=== PATIENT | female | born 1990 | race Caucasian/White ===

== ENCOUNTER → 2018-01-06 | Outpatient (CLI) | payer OTHER ==
[~2018-01-06] MED LIST: BIRTH CONTROL PO; CEFD300C3 PO; HYDR-34 PO; HYDR-3714 PO; IBUP-2185 PO; bcp
--- NOTE | 2018-01-06 13:31 | Diagnostic Imaging Report ---
PROCEDURE: US Non-ob pelvis comp/trans. TECHNIQUE: Multiple realtime grayscale images were obtained of the pelvis in various projections endovaginally. Transabdominal imaging was also performed. INDICATION: Dyspareunia and pelvic pain. The uterus measures 6.1 x 4.7 x 3.8 cm. The endometrium is 5 mm in thickness. No uterine mass is detected. The right ovary measures 4.6 x 2.3 x 1.8 cm and the left ovary measures 3.5 x 2.5 x 1.3 cm. Both ovaries contain multiple follicles. Largest on the right measures 13 mm. There is blood flow to both ovaries. No adnexal mass or free fluid is seen. IMPRESSION: Essentially unremarkable transabdominal and transvaginal pelvic ultrasound. Dictated by: Dictated on workstation # [id number]
== END ==
LOC: RAD 11:46
PROVIDERS: ATTEND Nurse Practitioner Family
DX: N94.10 Unspecified dyspareunia (principal); R10.2 Pelvic and perineal pain
CPT/HCPCS: 76830; 76856

== ENCOUNTER → 2018-12-08 | Outpatient (CLI) | payer OTHER ==
--- NOTE | 2018-12-08 14:22 | Diagnostic Imaging Report ---
INDICATION: Epigastric and abdominal pain. COMPARISON: None. Tc-99m Choletec 4.97 mCi IV followed by 8 ounces of oral Ensure. FINDINGS: The upper abdomen was imaged for 60 minutes with the gamma camera. There is normal appearance of activity in the liver. There is activity in the common duct and gallbladder by 60 minutes. After 60 minutes, the patient received 8 ounces of oral Ensure. After 60 minutes of additional imaging, the gallbladder ejection fraction was calculated to be 47% which is normal. IMPRESSION: Normal hepatobiliary study with GBEF of 47%. Dictated by: Dictated on workstation # [id number]
== END ==
LOC: CARD 11:25
PROVIDERS: ATTEND Surgery
DX: R10.13 Epigastric pain (principal); R11.2 Nausea with vomiting, unspecified
CPT/HCPCS: 78227

== ENCOUNTER 2018-12-19 13:12 | Outpatient (CLI) | payer OTHER ==
[~2018-12-19] VITALS: Ht 162.6 cm; Wt 52.6 kg
[2018-12-19] MEDS ORDERED: MELA1TAB15 PO (13:16)
== END 2018-12-19 13:18 | disposition home or self-care (01) ==
LOC: PREOP 13:12
PROVIDERS: ATTEND Surgery
DX: Z01.818 Encounter for other preprocedural examination (principal)

== ENCOUNTER 2021-09-01 08:42 | Emergency (ER) | payer BC ==
[~2021-09-01] VITALS: Ht 162 cm; Wt 52.0 kg
[~2021-09-01 08:42] MED LIST changes: +MELA1TAB15 PO; +PANT40TA2 PO
[2021-09-01] MEDS ORDERED: KETOROLAC 30 MG/ML VIAL IVP ONE (09:00)
--- NOTE | 2021-09-01 09:01 | ED Abdominal Pain ---
General Chief Complaint: Back Problems Stated Complaint: FEVER / CHILLS / N/V / BACK PAIN Source of Information: Patient Exam Limitations: No Limitations History of Present Illness Date Seen by Provider: Sep 01, 2021 Time Seen by Provider: 08:50 Initial Comments Patient is a 31-year-old female who presents to the emergency department with a chief complaint of right flank pain, right mid abdominal pain, nausea vomiting, subjective fever onset 2 days ago on Wednesday. Patient woke up with her symptoms, went to urgent care and was told that she did not have a urinary tract infection however they started her on some Macrobid. They also tested her for bacterial vaginosis which she states she did not have. Patient states her symptoms actually got better throughout Wednesday evening but returned yesterday evening and have been severe. She has had persistent nausea and vomiting with radiation of the pain from the right flank down into her groin and vaginal area. She denies abnormal vaginal discharge. Recently finished up her menstrual cycle in the last couple of days. Is on control. No prior history of kidney stone. Has had previous appendectomy. No diarrhea. Last bowel movement was yesterday. No black or bloody stools. All other review of systems reviewed and negative except as stated. Timing/Duration: 1-2 Days Severity/Quality: Aching, Cramping Location: RUQ, RLQ, Flank (right) Radiation: Groin Associated Symptoms: Nausea/Vomiting Allergies and Home Medications Allergies Coded Allergies: No Known Drug Allergies (Unverified , 10/23/13) Patient Home Medication List Home Medication List Reviewed: Yes Hydrocodone/Acetaminophen (Hydrocodone-Acetamin 5-325 mg) 1 Each Tablet, 1 TAB PO Q6H PRN for PAIN-MODERATE (5-7) Prescribed by: THELMA SMALL on 09/01/21 1031 Melatonin/Pyridoxine (Melatonin 5 mg Tablet) 1 Each Tablet, 5 MG PO HS, (Reported) Entered as Reported by: JOHNNA KRAMER on 12/19/18 1316 Ondansetron (Ondansetron Odt) 4 Mg Tab.rapdis, 4 MG PO Q8H PRN for nausea Prescribed by: THELMA SMALL on 09/01/21 1030 Pantoprazole Sodium (Protonix) 40 Mg Tablet.dr, 40 MG PO DAILY Prescribed by: MICHELLE CHICAS on 12/22/18 1559 Tamsulosin HCl (Flomax) 0.4 Mg Cap, 0.4 MG PO DAILY Prescribed by: THELMA SMALL on 09/01/21 1030 [bcp] , (Reported) Entered as Reported by: FLORENTINO SINGH on 05/06/16 0047 Review of Systems Review of Systems Constitutional: see HPI EENTM: No Symptoms Reported Respiratory: No Symptoms Reported Cardiovascular: No Symptoms Reported Gastrointestinal: Abdominal Pain, Nausea, Vomiting Genitourinary: Pain (vaginal pain (had pain about 1 week ago as well on wednesday after intercourse)) Musculoskeletal: no symptoms reported Skin: no symptoms reported Psychiatric/Neurological: No Symptoms Reported All Other Systems Reviewed Negative Unless Noted: Yes Past Pwtljlr-Llozsn-Kbdmpb Hx Immunizations Up To Date Tetanus Booster (TDap): Unknown Seasonal Allergies Seasonal Allergies: No Past Medical History Surgeries: Yes (L KNEE ARTHOSCOPY) Appendectomy, Tonsillectomy Respiratory: No Cardiac: No Neurological: No Reproductive Disorders: No Genitourinary: No Gastrointestinal: Yes Gastroesophageal Reflux Musculoskeletal: No Endocrine: No HEENT: No Cancer: No Psychosocial: No Integumentary: No Blood Disorders: No Family Medical History Patient reports no known family medical history. Physical Exam Vital Signs Vital Signs - First Documented 09/01/21 08:50 Temp 36.0 Pulse 88 Resp 16 B/P (MAP) 140/116 (124) Pulse Ox 100 Capillary Refill : Height/Weight/BMI Height: 5'4.00" Weight: 116lbs. 0.0oz. 52.382971rm; 19.9 BMI Method:Stated General Appearance: WD/WN, no apparent distress HEENT: PERRL/EOMI Respiratory: lungs clear, normal breath sounds, no respiratory distress, no accessory muscle use Cardiovascular: regular rate, rhythm Gastrointestinal: soft, tenderness (right flank, mild right CVA tenderness; no rebound/Light's; no involuntary guarding) Extremities: normal range of motion, non-tender, normal inspection, no pedal edema Back: CVA tenderness (R) Neurologic/Psychiatric: alert, normal mood/affect, oriented x 3 Skin: normal color, warm/dry Progress/Results/Core Measures Results/Orders Lab Results Laboratory Tests Test 09/01/21 08:59 09/01/21 09:05 Range/Units White Blood Count 6.0 4.3-11.0 10^3/uL Red Blood Count 4.50 3.80-5.11 10^6/uL Hemoglobin 13.3 11.5-16.0 g/dL Hematocrit 40 35-52 % Mean Corpuscular Volume 89 80-99 fL Mean Corpuscular Hemoglobin 30 25-34 pg Mean Corpuscular Hemoglobin Concent 33 32-36 g/dL Red Cell Distribution Width 13.5 10.0-14.5 % Platelet Count 304 130-400 10^3/uL Mean Platelet Volume 9.9 9.0-12.2 fL Immature Granulocyte % (Auto) 0 % Neutrophils (%) (Auto) 52 42-75 % Lymphocytes (%) (Auto) 41 12-44 % Monocytes (%) (Auto) 6 0-12 % Eosinophils (%) (Auto) 1 0-10 % Basophils (%) (Auto) 0 0-10 % Neutrophils # (Auto) 3.1 1.8-7.8 10^3/uL Lymphocytes # (Auto) 2.4 1.0-4.0 10^3/uL Monocytes # (Auto) 0.4 0.0-1.0 10^3/uL Eosinophils # (Auto) 0.1 0.0-0.3 10^3/uL Basophils # (Auto) 0.0 0.0-0.1 10^3/uL Immature Granulocyte # (Auto) 0.0 0.0-0.1 10^3/uL Urine Color YELLOW Urine Clarity CLEAR Urine pH 7.0 5-9 Urine Specific [place] 1.020 1.016-1.022 Urine Protein TRACE H NEGATIVE Urine Glucose (UA) NEGATIVE NEGATIVE Urine Ketones 1+ H NEGATIVE Urine Nitrite NEGATIVE NEGATIVE Urine Bilirubin NEGATIVE NEGATIVE Urine Urobilinogen 0.2 < = 1.0 MG/DL Urine Leukocyte Esterase TRACE H NEGATIVE Urine RBC (Auto) 2+ H NEGATIVE Urine RBC 10-25 H /HPF Urine WBC RARE /HPF Urine Squamous Epithelial Cells 2-5 /HPF Urine Crystals NONE /LPF Urine Bacteria NEGATIVE /HPF Urine Casts NONE /LPF Urine Mucus SMALL H /LPF Urine Culture Indicated NO Sodium Level 136 135-145 MMOL/L Potassium Level 4.3 3.6-5.0 MMOL/L Chloride Level 107 98-107 MMOL/L Carbon Dioxide Level 17 L 21-32 MMOL/L Anion Gap 12 5-14 MMOL/L Blood Urea Nitrogen 7 7-18 MG/DL Creatinine 0.86 0.60-1.30 MG/DL Estimat Glomerular Filtration Rate 94 BUN/Creatinine Ratio 8 Glucose Level 125 H 70-105 MG/DL Calcium Level 9.3 8.5-10.1 MG/DL My Orders Orders - THELMA SMALL MD Ed Iv/Invasive Line Start (09/01/21 08:56) Cbc With Automated Diff (09/01/21 08:56) Basic Metabolic Panel (09/01/21 08:56) Urine Bedside (09/01/21 08:56) Ua Culture If Indicated (09/01/21 08:56) Abdomen/Kub 1view (09/01/21 08:56) Ct Abd/Pelvis Wo(Kidney Stone) (09/01/21 08:56) Ketorolac Injection (Toradol Injection) (09/01/21 09:00) Neis Juarez Dna Urine Test (09/01/21 09:01) Chlamydia Trachomatis Urine (09/01/21 09:01) Ondansetron Injection (Zofran Injectio (09/01/21 09:30) Medications Given in ED Current Medications Medications Dose Ordered Sig/Malissa Route Start Time Stop Time Status Last Admin Dose Admin Ketorolac Tromethamine 15 mg ONCE ONCE IVP 09/01/21 09:00 09/01/21 09:01 DC 09/01/21 09:12 15 MG Ondansetron HCl 8 mg ONCE ONCE IVP 09/01/21 09:30 09/01/21 09:31 DC 09/01/21 09:21 8 MG Vital Signs/I&O 09/01/21 08:50 Temp 36.0 Pulse 88 Resp 16 B/P (MAP) 140/116 (124) Pulse Ox 100 Progress Progress Note : Time: 10:27 Progress Note Patient states she feels much better after IV Toradol. She has a 3 mm distal right ureteral stone. She does not have evidence of urinary tract infection on urinalysis. Renal function is normal. I did recommend the patient complete her course of antibiotics. I have given her return precautions. She verbalized understanding, is comfortable with the plan of care. All questions have been sought and answered. Diagnostic Imaging Diagonstic Imaging: Xray Comments [facility] [place], [place] NAME: IRENA BILL [facility] REC#: [id number] PT STATUS: REG ER : 1990 PHYSICIAN: THELMA SMALL MD ADMIT DATE: 09/01/21/ER Draft Date of Exam:09/01/21 ABDOMEN/KUB 1VIEW EXAMINATION: Abdomen 1 view HISTORY: Right flank pain COMPARISON: 09/01/2021 FINDINGS: There is a moderate amount of gas and stool throughout the colon. Nonobstructive bowel gas pattern. Opacity within the left pelvis measuring up to 0.3 cm. The osseous structures are intact. IMPRESSION: No acute radiographic abnormality in the visualized abdomen. A 0.3 cm opacity within the left pelvis which could represent stone or phlebolith. Dictated on workstation # [id number] Dict: 09/01/21 1002 Trans: 09/01/21 1004 CVB [id number] Interpreted by: NATALIO CASTELLON DO Electronically signed by: Comments [facility] [place] [place] NAME: IRENA BILL [facility] REC#: [id number] PT STATUS: REG ER : 1990 PHYSICIAN: THELMA SMALL MD ADMIT DATE: 09/01/21/ER Draft Date of Exam:09/01/21 CT ABD/PELVIS WO(KIDNEY STONE) INDICATION: Low abdominal pain. TECHNIQUE: Noncontrast CT imaging of the abdomen and pelvis was performed. Comparison is made to the study of 05/06/2016. FINDINGS: The unenhanced images of the liver, gallbladder, pancreas, adrenal glands, and spleen are unremarkable. There are numerous punctate nonobstructing stones in the kidneys bilaterally. There is mild prominence of the right renal collecting system and ureter to the level of an approximately 0.3 cm stone in the distal right ureter. No bladder calculus is identified. There is no evidence of free fluid or organized inflammation. The appendix is surgically absent. IMPRESSION: Bilateral nephrolithiasis with an approximately 0.3 cm at least partially obstructing calculus in the distal right ureter. Dictated on workstation # [id number] Dict: 09/01/21 0955 Trans: 09/01/21 1008 [id number] Interpreted by: BEKAH HOLDEN MD Electronically signed by: Departure Impression Primary Impression: Ureterolithiasis Disposition: 01 HOME, SELF-CARE Condition: Improved Departure-Patient Inst. Decision time for Depature: 10:28 Referrals: [facility] (PCP/Family) Primary Care Physician CLARK BAY MD Patient Instructions: Kidney Stone, Adult ED Add. Discharge Instructions: Drink plenty of fluids to stay well-hydrated. Strain your urine until you note that you have passed your stone. You can continue to take togd-ayw-gpwcvoo ibuprofen, 3 tablets which is 600 mg every 6 hours as needed for pain. Or you can take Alleve 2 tablets in the morning with food and 2 tablets in the evening with food as needed for pain. I have written you a prescription for hydrocodone. You can take 1 of these every 6 hours as needed for pain. Hydrocodone is a narcotic, you should not drive and take this medication. Narcotics can cause constipation. While you are taking them you should be on a stool softener daily. I have sent you a prescription for nausea medicine that you can take every 8 hours. I have also sent you a prescription for Flomax which will help with urinary flow. Please finish up your antibiotic prescription. Come back to the emergency room for any fever, worsening pain or new emergent concerning symptoms. I have also given you contact information for our urologist on-call, Dr. Bay. You can call his office for follow-up regarding further evaluation and man agement of kidney stones. Scripts Ondansetron (Ondansetron Odt) 4 Mg Tab.rapdis 4 MG PO Q8H PRN for nausea, #15 TAB Prov: THELMA SMALL MD 09/01/21 Hydrocodone/Acetaminophen (Hydrocodone-Acetamin 5-325 mg) 1 Each Tablet 1 TAB PO Q6H PRN for PAIN-MODERATE (5-7), #12 TAB Prov: THELMA SMALL MD 09/01/21 Tamsulosin HCl (Flomax) 0.4 Mg Cap 0.4 MG PO DAILY for 14 Days, #14 CAP Prov: THELMA SMALL MD 09/01/21 THELMA SMALL MD Sep 01, 2021 09:01
[2021-09-01 09:06] LABS: BASOPHILS % (AUTO) 0 % (0-10); EOSINOPHILS # (AUTO) 0.1 10^3/uL (0.0-0.3); EOSINOPHILS % (AUTO) 1 % (0-10); HEMATOCRIT 40 % (35-52); HEMOGLOBIN 13.3 g/dL (11.5-16.0); LYMPHOCYTES # (AUTO) 2.4 10^3/uL (1.0-4.0); LYMPHOCYTES % (AUTO) 41 % (12-44); MEAN CORPUSCULAR HEMOGLOBIN 30 pg (25-34); MEAN CORPUSCULAR HGB CONC 33 g/dL (32-36); MEAN CORPUSCULAR VOLUME 89 fL (80-99); MEAN PLATELET VOLUME 9.9 fL (9.0-12.2); MONOCYTES # (AUTO) 0.4 10^3/uL (0.0-1.0); MONOCYTES % (AUTO) 6 % (0-12); NEUTROPHILS # (AUTO) 3.1 10^3/uL (1.8-7.8); NEUTROPHILS % (AUTO) 52 % (42-75); PLATELET COUNT 304 10^3/uL (130-400)
[2021-09-01 09:15] LABS: BILIRUBIN,URINE NEGATIVE (NEGATIVE); CLARITY,URINE CLEAR; COLOR,URINE YELLOW; GLUCOSE, URINE (UA) NEGATIVE (NEGATIVE); KETONES,URINE 1+ (NEGATIVE); LEUKOCYTE ESTERASE ,URINE TRACE (NEGATIVE); NITRITE,URINE NEGATIVE (NEGATIVE); PROTEIN,URINE TRACE (NEGATIVE)
[2021-09-01 09:17] LABS: POTASSIUM 4.3 MMOL/L (3.6-5.0)
[2021-09-01 09:18] LABS: CALCIUM 9.3 MG/DL (8.5-10.1)
[2021-09-01 09:22] LABS: CREATININE SERUM 0.86 MG/DL (0.60-1.30)
[2021-09-01] MEDS ORDERED: ONDANSETRON 4 MG/2 ML (SDV) Z0FRAN IVP ONE (09:30)
[2021-09-01 09:40] LABS: BACTERIA,URINE NEGATIVE /HPF; WBC,URINE RARE /HPF
--- NOTE | 2021-09-01 10:05 | Diagnostic Imaging Report ---
EXAMINATION: Abdomen 1 view HISTORY: Right flank pain COMPARISON: 09/01/2021 FINDINGS: There is a moderate amount of gas and stool throughout the colon. Nonobstructive bowel gas pattern. Opacity within the left pelvis measuring up to 0.3 cm. The osseous structures are intact. IMPRESSION: No acute radiographic abnormality in the visualized abdomen. A 0.3 cm opacity within the left pelvis which could represent stone or phlebolith. Dictated by: Dictated on workstation # [id number]
--- NOTE | 2021-09-01 10:08 | Diagnostic Imaging Report ---
INDICATION: Low abdominal pain. TECHNIQUE: Noncontrast CT imaging of the abdomen and pelvis was performed. Comparison is made to the study of 05/06/2016. FINDINGS: The unenhanced images of the liver, gallbladder, pancreas, adrenal glands, and spleen are unremarkable. There are numerous punctate nonobstructing stones in the kidneys bilaterally. There is mild prominence of the right renal collecting system and ureter to the level of an approximately 0.3 cm stone in the distal right ureter. No bladder calculus is identified. There is no evidence of free fluid or organized inflammation. The appendix is surgically absent. IMPRESSION: Bilateral nephrolithiasis with an approximately 0.3 cm at least partially obstructing calculus in the distal right ureter. Dictated by: Dictated on workstation # [id number]
[2021-09-01] MEDS ORDERED: ONDA4TAB11 PO ×2 (10:30→10:37)
[2021-09-01] MEDS ORDERED: TMSL.4C PO ×2 (10:30→10:37)
[2021-09-01] MEDS ORDERED: ACHD5005 PO ×2 (10:30→10:37)
[2021-09-01 10:39] VITALS: BP 115/64
== END 2021-09-01 10:39 | disposition home or self-care (01) ==
LOC: EDUNIT# 08:42 → ER 08:44
DX: N20.1 Calculus of ureter (principal)
CPT/HCPCS: 36415; 74018; 74176; 80048; 81000; 84703; 85025; 87491; 87591; 96374; 96375

== ENCOUNTER → 2021-09-02 | Outpatient (CLI) | payer BC ==
[~2021-09-02] MED LIST changes: +ACHD5005 PO; +ONDA4TAB11 PO; +TMSL.4C PO
--- NOTE | 2021-09-02 13:53 | Diagnostic Imaging Report ---
INDICATION: Right ureteral stone. TIME OF EXAM: 01:27 p.m. COMPARISON: Correlation is made with prior radiograph from earlier same day. FINDINGS: The tiny stone in the region of the distal right ureter is not well visualized by plain film radiographs. Punctate densities are noted overlying the right renal shadow, consistent with nephrolithiasis. Left renal shadow is somewhat obscured by bowel gas. No definite calculi along the course of ureters are seen. IMPRESSION: Right-sided renal calculi. No definite calculi within the course of ureters are identified. Dictated by: Dictated on workstation # [id number]
== END ==
LOC: RAD 13:05
PROVIDERS: ATTEND Urology
DX: N20.0 Calculus of kidney (principal)
CPT/HCPCS: 74018

== ENCOUNTER 2021-09-08 12:54 | Outpatient (CLI) | payer BC ==
[~2021-09-08] VITALS: Ht 162.6 cm; Wt 52.3 kg
[2021-09-08] MEDS ORDERED: ACHD5005 PO (15:22)
[2021-09-09] MEDS ORDERED: PHEN-640 PO (08:06)
[2021-09-09] MEDS ORDERED: NITR-65 PO (08:06)
== END 2021-09-08 15:35 | disposition home or self-care (01) ==
LOC: PREOP 12:54
PROVIDERS: ATTEND Urology
DX: Z01.818 Encounter for other preprocedural examination (principal)

== ENCOUNTER 2021-09-09 06:15 | Day surgery (SDC) | payer BC ==
[2021-09-09] VITALS (9 sets, daily range): BP systolic 109–123; BP diastolic 67–81
[~2021-09-09] VITALS: Ht 162 cm; Wt 52.3 kg
[2021-09-09] MEDS ORDERED: cefTRIAXone 1 GM PRE-MIX 50 ML IV ONE (06:30)
[2021-09-09] MEDS: LACTATED RINGERS 1,000 ML IV PRN ×2 (06:50→07:30)
[2021-09-09] MEDS ORDERED: fentaNYL INJ 100 MCG/2 ML AMP ONE (06:51)
[2021-09-09] MEDS ORDERED: ONDANSETRON 4 MG/2 ML (SDV) Z0FRAN ONE (06:51)
[2021-09-09] MEDS ORDERED: SEVOFLURANE (ULTANE) 15 ML INHAL SOLN ONE (06:51)
[2021-09-09] MEDS ORDERED: LIDOCAINE PF 2% 5 ML (XYLOCAINE) VIAL ONE (06:51)
[2021-09-09] MEDS ORDERED: MIDAZOLAM 2 MG/2 ML (VERSED) VIAL ONE (06:51)
[2021-09-09] MEDS ORDERED: proPOfol 200 MG/20 ML (DIPRIVAN) VIAL IV ONE (06:51)
--- NOTE | 2021-09-09 07:05 | Progress Note-Pre Operative ---
Pre-Operative Progress Note H&P Reviewed The H&P was reviewed, patient examined and no changes noted. Date Seen by Provider: Sep 09, 2021 Time Seen by Provider: 07:05 Date H&P Reviewed: Sep 09, 2021 Time H&P Reviewed: 07:05 Pre-Operative Diagnosis: RT DISTAL URETERAL STONE CLARK BAY MD Sep 09, 2021 07:05
--- NOTE | 2021-09-09 07:13 | Progress Note-Post Operative ---
Post-Operative Progess Note Surgeon (s)/Curriculum Assistant Principal (s) Surgeon CLARK BAY MD Curriculum Assistant Principal: NONE Pre-Operative Diagnosis RT DISTAL URETERAL STONE Post-Operative Diagnosis SAME Procedure & Operative Findings Date of Procedure 09/09/21 Procedure Performed/Findings RT URETEROSCOPY WITH STONE FRAGMENTATION AND BASKET Anesthesia Type GENERAL Estimated Blood Loss Estimated blood loss (mL): NONE Specimens/Packing Specimens Removed NONE Packing: NONE CLARK BAY MD Sep 09, 2021 07:13
--- NOTE | 2021-09-09 07:14 | Discharge Inst-Urology ---
Discharge Inst-Urology Reconcile Patient Problems Problems Reviewed?: Yes Final Diagnosis RT DISTAL URETERAL STONE Patient Instructions/Follow Up Plan/Assessment/Instructions Please make appointment to been seen in office in 3 weeks. Increase oral fluids for 48 hours and then as needed. Diet and Activity as tolerated. If questions or concerns contact your physician Or seek help at emergency department. CLARK BAY MD Sep 09, 2021 07:14
--- NOTE | 2021-09-09 07:15 | Diagnostic Imaging Report ---
ABDOMEN/KUB 1VIEW INDICATION: Right-sided ureteral stone COMPARISON: 09/02/2021 FINDINGS: There remain a few punctate right-sided renal calculi. Again, no mineralizations are seen along the course of the ureters. Nonobstructive bowel gas pattern. Stable regional skeleton. IMPRESSION: No change in multiple right-sided punctate renal calculi. Again, no calculus are seen along the course of the right ureter. Dictated by: Dictated on workstation # [id number]
[2021-09-09] MEDS ORDERED: SUGAMMADEX 500 MG/5 ML VIAL (BRIDION) IV ONE (07:46)
[2021-09-09] MEDS ORDERED: ROCURONIUM 10 MG/ML 5 ML SYRINGE IV ONE (07:47)
[2021-09-09] MEDS ORDERED: PHEN-640 PO (08:06)
[2021-09-09] MEDS ORDERED: NITR-65 PO (08:06)
[2021-09-09] MEDS ORDERED: HYDROmorphone 2 MG/ML VIAL (DILAUDID) IV ONE (08:15)
[2021-09-09] MEDS ORDERED: ONDANSETRON 4 MG/2 ML (SDV) Z0FRAN IVP PRN (08:15)
--- NOTE | 2021-09-09 13:53 | Anesthesia-General Post-Op ---
General Patient Condition Mental Status/LOC: Same as Preop Cardiovascular: Satisfactory Nausea/Vomiting: Absent Respiratory: Satisfactory Pain: Controlled Complications: Absent Post Op Complications Complications None Follow Up Care/Instructions Patient Instructions None needed. Anesthesia/Patient Condition Patient Condition Patient is doing well, no complaints, stable vital signs, no apparent adverse anesthesia problems. No complications reported per nursing. D/C home per [facility] Criteria: Yes MAREK COOMBS CRNA Sep 09, 2021 13:53
--- NOTE | 2021-09-09 14:18 | OPERATIVE REPORT ---
DATE OF SERVICE: 09/09/2021 PREOPERATIVE DIAGNOSIS: Right distal ureteral stone. POSTOPERATIVE DIAGNOSIS: Right distal ureteral stone. OPERATION PERFORMED: Right ureteroscopy with stone lithotripsy and basket. SURGEON: Johnathan Bay MD ANESTHESIA: General. COMPLICATIONS: None. DESCRIPTION OF PROCEDURE: Under satisfactory general anesthesia, the patient in lithotomy position, genitalia were prepped and draped in the usual sterile fashion. Cystoscopy was performed that was normal except that the right ureteral orifice intramural portion was edematous and hyperemic. Using the foroblique lens, I dilated the right ureteral orifice intramural portion to accommodate a 6.9 [place] semi-rigid ureteroscope. I visualized the stone, which I had disimpacted during dilatation apparently and broke some of it. I passed a [place]te basket 3-[place] size. It fragmented the stone further and pulled it into the bladder. I went back with ureteroscope to the proximal ureter and antegrade and retrograde to confirm no more fragments or stones. I removed the ureteroscope, reinserted the cystoscope to empty the bladder. The patient tolerated the procedure and anesthesia well and was sent to recovery room in stable condition. CC: [facility] - requested, unable to deliver. Job ID: [id number] DocumentID: [id number] Dictated Date: 09/09/2021 07:57:18 Non Licensed Nuclear Equipment Operator Date: 09/09/2021 14:17:49 Dictated By: JOHNATHAN BAY MD
== END 2021-09-09 09:55 | disposition home or self-care (01) ==
LOC: SDC 06:15
PROVIDERS: ATTEND Urology
DX: N20.2 Calculus of kidney with calculus of ureter (principal); F17.210 Nicotine dependence, cigarettes, uncomplicated
CPT/HCPCS: 74018; 76000; 84703; 87081

== ENCOUNTER → 2021-09-30 | Outpatient (CLI) | payer BC ==
[~2021-09-30] MED LIST changes: +NITR-65 PO; +PHEN-640 PO
[2021-09-30 16:29] LABS: CALCIUM 9.4 MG/DL (8.5-10.1); CREATININE SERUM 0.75 MG/DL (0.60-1.30); PHOSPHORUS 3.4 MG/DL (2.3-4.7); URIC ACID 5.2 MG/DL (2.6-7.2)
== END ==
LOC: LAB 15:44
PROVIDERS: ATTEND Urology
DX: N20.9 Urinary calculus, unspecified (principal)
CPT/HCPCS: 36415; 80048; 83970; 84100; 84550

== ENCOUNTER 2021-10-31 10:46 | Outpatient (RCR) | payer BC | END 2021-11-01 | LOC: LAB 10:46 | PROVIDERS: ATTEND Urology | DX: N20.9 Urinary calculus, unspecified (principal) | CPT/HCPCS: 36415; 82140; 82340; 82507; 82570; 83735; 83945; 83986; 84105; 84133; 84300; 84392; 84560 ==